=== PATIENT | female | born 1935 ===

== ENCOUNTER → 2018-04-02 13:53 | Outpatient (REF) | payer MEDICARE, SELFPAY ==
[2018-04-02 14:14] LABS: Hemoglobin A1C% w Est Avg Glu 6.7 % (4.0-6.0)
== END ==
LOC: LAB 13:53
PROVIDERS: Visit Provider Student in an Organized Health Care Education/Training Program
DX: E11.22 Type 2 diabetes mellitus with diabetic chronic kidney disease (principal)
CPT/HCPCS: 83036